=== PATIENT | female | born 1985 | race Caucasian/White ===

== ENCOUNTER 2017-02-23 05:30 | Inpatient (IN) ==
[2017-02-23] MEDS ORDERED: Naloxone 0.4 MG/ML INJ IVP PRN (11:07)
[2017-02-23] MEDS ORDERED: *HR* Nalbuphine 20 MG/ML AMPUL IVP PRN (11:07)
[2017-02-23] MEDS ORDERED: miSOPROStol 25 MCG TABLET PO PRN (11:07)
[2017-02-23] MEDS ORDERED: Metoclopramide 10 MG/2 ML VIAL IVP PRN (11:07)
[2017-02-23] MEDS ORDERED: Famotidine 20 MG/2 ML VIAL IVP PRN (11:07)
[2017-02-23] MEDS ORDERED: Ondansetron 4 MG/2 ML VIAL IVP PRN (11:07)
[2017-02-23] MEDS ORDERED: Penicillin G Potassium 5,000,000 UNIT in D5% in Water (Mini-Bag+) 100 ML IVPB ONE (11:10)
[2017-02-23 11:27] LABS: Basophils % 0.2 %; Eosinophils # 0.1 K/mcL (0.0-0.6); Eosinophils % 0.8 %; Hematocrit 40.3 % (35.3-44.9); Hemoglobin 13.3 g/dL (11.5-15.4); Immature Granulocytes % 0.6 % (0-4); Lymphocytes # 2.1 K/mcL (0.6-4.6); Mean Corpuscular Hemoglobin 28.7 pg (28.0-33.3); Mean Platelet Volume 9.7 fL (9.4-12.4); Monocytes # 0.7 K/mcL (0.0-1.3); Monocytes % 7.5 %; Neutrophils # 6.7 K/mcL (1.6-8.9); Platelet Count 287 K/mcL (140-400); Red Blood Count 4.63 M/mcL (3.82-4.97); Red Cell Distribution Width 13.2 % (11.5-14.5); Segmented Neutrophils % 68.9 %
[2017-02-23] MEDS: Ringers Solution, Lactated 1,000 ML IVC SCH ×2 (11:34→20:30)
[2017-02-23 11:48] LABS: Amphetamine Screen,Urine Negative ng/mL (Cutoff=1000); Barbiturate Screen,Urine Negative ng/mL (Cutoff=200); Benzodiazepines Screen,Urine Negative ng/mL (Cutoff=200); Cannabinoid Screen,Urine Negative ng/mL (Cutoff = 50); Cocaine Screen,Urine Negative ng/mL (Cutoff= 300); Opiate Screen,Urine Negative ng/mL (Cutoff=300); Phencyclidine Screen,Urine Negative ng/mL (Cutoff=25)
--- NOTE | 2017-02-23 11:59 | OB/GYN History & Physical ---
Date of Encounter: 02/23/17 Time of Encounter: 12:03 Assessment and Plan (1) Post term at 41 weeks gestation Current visit: Yes Status: Acute Patient with spontaneous contractions every 5 minutes on arrival. No cervical change from her exam 3 days ago. Induction of labor with Chen balloon and by mouth Cytotec planned. Anticipate vaginal delivery (2) GBS (group B Streptococcus carrier), +RV culture, currently Current visit: Yes Status: Acute Penicillin prophylaxis per protocol History of Present Illness Chief complaint: 40 weeks IOL HPI: Ms. Machuca is a 31 year old female at 41 weeks with an EDC of 02/16/17 by LMP confirmed by ultrasound at 8 weeks. She presents to labor and delivery for induction of labor. She has had symptoms of cramping for over a week but denies any vaginal bleeding or loss of fluid. She had a reactive NST and KECIA of 20.2 at her office visit on 02/20/17. She reports an active fetus today and again reports no loss of fluid or vaginal bleeding prior to arrival. Her induction was delayed by 5 hours due to staffing on labor and delivery. Her has been complicated by polyhydramnios near-term which resolved, positive group B strep culture, anemia and postdates. The patient has been on iron supplementation and vitamins. Her blood type is O+, rubella immune varicella immune. Past Med Surg Social Fam HX - Past Medical History Attestation: Yes The following information was validated with the patient. Source: patient, old records reviewed Medical history: no medical history Psychiatric history: no psych history - Past Surgical History Surgical History: cholecystectomy - Social History Smoking Status: Never smoker Smokeless Tobacco Status: No Alcohol use: none Drug use: none Current living situation: Home - Independent Activity Level: Independent ambulation - Family History Father Living Status: Still Living Obstetrical History - Pregnancies : 1 Medications and Allergies Vit/Iron Fumarate/FA [ Tablet] 1 each PO DAILY 02/23/17 [ History] 3 Allergy/AdvReac Type Severity Reaction Status Date / Time No Known Allergies Allergy Verified 02/23/17 11:59 Review of System OB - Constitutional Constitutional ROS IM: weight gain - Gastrointestinal Gastrointestinal: cramping Exam - Vital Signs Vital signs: Afebrile, vital signs stable - Constitutional Constitutional: well developed, well nourished, no acute distress, average body habitus - HEENT HEENT: Normocephaly, Mucus Membranes Moist - Neck Neck exam: normal inspection, supple - Lungs Respiratory exam: CTAB - Cardiovascular Cardiovascular exam: RRR - Breasts Breast: bilateral: normal (Gravid) - Abdomen Abdomen: Present: gravid, non tender - Extremities Extremities exam: normal inspection, warm Deep Tendon Reflex Grade: 2+ Normal - Vulva Vulva: bilateral: normal - Vagina Vagina: Present: normal moisture - Cervix Dilation: 4 Effacement: 80 Station: 0 - Anus/Rectum Anus/Rectum: Present: normal perianal skin - Comments Comments: Chen balloon placed and filled with 60 mL. Patient tolerated well Results Result Diagrams: 02/23/17 11:20 All other labs normal. - VTE Reasons for not Prescribing Prophylaxis: Treatment not Indicated - Low risk for VTE
[2017-02-23] MEDS ORDERED: miSOPROStol 25 MCG TABLET PO ONE (12:00)
[2017-02-23] MEDS ORDERED: *HR* Ropivacaine/PF 0.2% 10 ML AMPUL EP ONE (14:07)
[2017-02-23] MEDS ORDERED: Ringers Solution, Lactated 500 ML IVC ONE (14:07)
[2017-02-23] MEDS ORDERED: EPHEDrine 50 MG/ML VIAL IVP PRN (14:07)
--- NOTE | 2017-02-23 14:10 | Anesthesia Evaluation PreOp ---
Date of Encounter: 02/23/17 Time of Encounter: 14:00 - Past History Planned Operation: ANDRES Cardiac History: Denies any Significant Hx Pulmonary History: Denies Any Significant HX CARE ASSISTANT History: Denies Any Significant HX Other Medical History: Denies Any Significant HX Anesthesia History: No Prior Anesthetic Complications, Past Anesthesia : Yes Alcohol Use: none Drug use: none Medications and Allergies Vit/Iron Fumarate/FA [ Tablet] 1 each PO DAILY 02/23/17 [ History] 3 Allergy/AdvReac Type Severity Reaction Status Date / Time No Known Allergies Allergy Verified 02/23/17 11:59 - Meds/Allergy Pre-op Review Medications Reviewed: Yes Allergies Reviewed: Yes Beta Blockers on Current Med List: No Anesthesia Results - Labs 02/23/17 11:20 Anesthesia Exam Height: 1.68m Weight: 67.5kg NPO (# of Hours): >4hr Pain Scale Used: Numeric (1 - 10) - HEENT Pupil (Motor): Pupils equal Mallampati: I Teeth: Normal Oral Opening: Greater than 3 - CARE ASSISTANT LOC: Oriented CARE ASSISTANT Motor: Normal RUE, Normal LUE, Normal RLE, Normal LLE, Normal Face CARE ASSISTANT Sensory: Normal: RUE, LUE, RLE, LLE, Face - Cardiac Rhythm: Regular Murmur: None JVD: No Carotid Bruit: No - Pulmonary Breath Sounds: bilateral Clear Respiratory Effort: Symmetrical Anesthesia Assess/Plan ASA Score: 2 Modified Tuan Scale for Level of Consciousness: Cooperative, oriented, and tranquil Anesthetic Plan: Regional Autologous Blood: Yes Monitoring Plan: Standard Monitors Recovery Plan: Other
[2017-02-23] MEDS ORDERED: Epidural Premix (fent/bupiv) 110 ML EP SCH (14:15)
[2017-02-23] MEDS: Penicillin G Potassium 2,500,000 UNIT in D5% in Water 100 ML IVPB SCH ×2 (15:51→19:50)
--- NOTE | 2017-02-23 17:11 | OB Labor Progress Note ---
Date of Encounter: 02/23/17 Time of Encounter: 17:08 Labor Progress Note - Subjective Subjective: The patient is comfortable with contractions. Her 60 mL Chen catheter balloon has just come out. She has had 2 doses of penicillin for her GBS-positive culture - Vital Signs Vital Signs: Afebrile, vital signs stable - Cervix Cervix: 7/80/0, vertex - Heart Tones Heart Tones: 120s baseline, CAT 1 - [place]: Contractions irregular, the patient has had 25 mcg of Cytotec as her initial dose at admission - Interventions Interventions: 41 week IUP for postdates induction with Cytotec and Chen, GBS positive with penicillin prophylaxis - Plan Plan: Amniotomy with a small amount of blood-tinged fluid seen. IUPC placed. Continue induction, patient may receive Pitocin augmentation if needed
[2017-02-23] MEDS ORDERED: Oxytocin 20 units/ LR 1000 mL 20 UNIT/1,000 ML BAG IVC SCH (18:15)
[2017-02-23] MEDS ORDERED: Epidural Premix (fent/bupiv) 110 ML EP ONE (20:59)
--- NOTE | 2017-02-23 21:18 | Anesthesia Procedures ---
Date of Encounter: 02/23/17 Time of Encounter: 21:02 Procedures: Anesthesia - Epidural/Spinal Patient ID/Chart reviewed: Yes Patient examined: Yes OB Eval: Gestational age: 41 OB Eval: : 1 OB Eval: Hx Para: 0 OB Eval: Contractions: Non-stressed pattern Consent Obtained: Yes Supplemental Oxygen: None/Room Air Site Prep: Aseptic Technique, Sterile prep and drape, 0.5% Chlorhexidine/Alcohol Patient position: upright Local Anesthetic: Lidocaine 1% Amount of Local Anesthetic used: 2 Touhy Needle Gauge: 18 Touhy Needle Depth (cm): 5 Catheter Depth at Skin (cm): 12 Test Dose (1.5% Lido + Epi): Volume given (mls): 3 Test Dose Result: Negative Loading Dose: Other: Ropivacaine 0.5% 8mL Loading Dose Administered: Thru Catheter Infusion Med: 0.125% Bupivacaine w/ 2 mcg/ml Fentanyl Infusion Rate (mls/hr): 15 (Bolus 4mL q15min; Max 3/hr)
--- NOTE | 2017-02-23 22:08 | OB Labor Progress Note ---
Date of Encounter: 02/23/17 Time of Encounter: 22:05 Labor Progress Note - Subjective Subjective: The patient is comfortable but shaking after her epidural. - Vital Signs Vital Signs: Afebrile, vital signs stable, blood pressures 100s/60s - Cervix Cervix: 7-8/80/0 with more cervix on the left - Heart Tones Heart Tones: Baseline 140s to 150s with variable decelerations to the 70s X3. Resolved with uterine displacement of the right. Attempted P Ranjan between contractions but was removed. - Biron Biron: Contractions were 2-3 minutes, 30-50 mmHg on Pitocin. Pitocin discontinued after variable decelerations - Interventions Interventions: 41 week IUP for induction of labor, positive GBS status post penicillin prophylaxis - Plan Plan: Patient has Pitocin off. Facemask oxygen for intrauterine resuscitation. heart rate tracing stable at this time
[2017-02-24] MEDS: Penicillin G Potassium 2,500,000 UNIT in D5% in Water 100 ML IVPB SCH (00:06)
--- NOTE | 2017-02-24 03:07 | OB/GYN Procedure Note ---
Delivery - Delivery Date: 02/24/17 Provider: Sandy San Intrapartum events: meconium Delivery induction: misoprostol Delivery augmentation: rupture of membranes, pitocin Delivery monitor: external FHT, external uterine, internal uterine Anesthesia: epidural Estimated Blood Loss: 200 - (s) A Delivery Date: 02/24/17 Delivery Time: 02:34 Presentation: vertex Position: JAMAL Route of delivery: Gender: Male Viability: Viable Pounds: 8 Ounces: 3 at 1 minute: 6 at 5 mins: 9 Specimens collected: cord blood Placenta: spontaneous, uterine exploration Cord: 3 umbilical vessels - Repair Episiotomy: none Laceration Description: Perineal - 2nd Degree, Labial (Left) - Complications Delivery complications: meconium Delivery comments: The patient was complete and pushing with epidural anesthesia with a spontaneous vaginal delivery in the JAMAL position of a vigorous male weighing 8 lbs. 3 oz. with Apgars of 6 at 1 minute and 9 at 5 minutes. was placed on the maternal abdomen and the care of the nursery care team. Terminal meconium was noted at the time of delivery and the infant was bulb suctioned. The cord was clamped and cut after pulsations ceased. Cord blood obtained. The placenta was delivered spontaneous and intact. Left labial laceration was repaired with 4-0 monocryl in a running nonlocking fashion. There was a second-degree perineal laceration which was repaired with 3-0 monocryl in usual fashion. Estimated blood loss 200 mL, complications none - Disposition Mom disposition: stable in LDR [place] disposition: stable in LDR
--- NOTE | 2017-02-24 03:16 | OB/GYN Progress Note ---
Date of Encounter: 02/24/17 Time of Encounter: 03:14 - Assessment and Plan (1) Post term at 41 weeks gestation Current Visit: Yes Status: Acute Patient with spontaneous contractions every 5 minutes on arrival. No cervical change from her exam 3 days ago. Induction of labor with Chen balloon and by mouth Cytotec planned. Anticipate vaginal delivery (2) GBS (group B Streptococcus carrier), +RV culture, currently Current Visit: Yes Status: Acute Penicillin prophylaxis per protocol Subjective - Subjective Principal diagnosis: 38 wk IUP Interval history: The patient has been observed for over 4 hours because she felt lightheaded and dizzy and fell onto grass forward towards her face and abdomen. The patient reports no carney, bruising or areas that are sore that need to be further evaluated. She is requesting discharge. She reports the fetus is active. There is been no vaginal bleeding or loss of fluid Antepartum ROS: movement normal, contractions (Irregular and unchanged from previous visits), no new complaints, no loss of fluid, no vaginal bleeding Objective - Vital Signs Vital Signs: Intake and Output 02/23/17 02/23/17 02/24/17 15:59 23:59 07:59 Intake Total 1200 / 1200 Balance 1200 / 1200 Intake: IV Fluids 1200 / 1200 Lactated Ringers 1,000 ML @ 125 1000 / 1000 mls/hr IVC .Q8H CHAD Rx#: [id number] Pfizerpen 2,500,000 UNIT In 200 / 200 Dextrose 5% 100 ML @ 200 mls/hr IVPB Q4HR CHAD Rx#:[id number] Other: Weight 67.5 kg - Exam FHR: category 1 Abdomen: Present: normal appearance (No carney or bruising), soft, gravid. Absent: tenderness - Labs Labs: CBC shows hemoglobin 9.9 which is stable, electrolytes are normal
[2017-02-24] MEDS ORDERED: Acetaminophen 325 MG TABLET PO PRN (06:45)
[2017-02-24] MEDS ORDERED: *HR* HYDROcodone/Acet 5/325 mg TABLET PO PRN (06:45)
[2017-02-24] MEDS ORDERED: Oxytocin 20 units/ LR 1000 mL 20 UNIT/1,000 ML BAG IVC SCH (06:45)
[2017-02-24] MEDS ORDERED: Measles/Mumps/Rubella Vacc 0.5 ML VIAL SQ PRN (06:45)
[2017-02-24] MEDS ORDERED: Rho Immune Globulin 1,500 UNIT SYRINGE IM PRN (06:45)
[2017-02-24] MEDS: Ibuprofen 600 MG TABLET PO SCH ×3 (08:04→23:07)
[2017-02-24] MEDS ORDERED: Prenatal Vit/FA 1 EACH TABLET PO SCH (09:00)
[2017-02-24] MEDS ORDERED: Preparation H Ointment 30 GM TUBE TP PRN (22:34)
[2017-02-25 07:07] LABS: Basophils % 0.3 %; Eosinophils # 0.1 K/mcL (0.0-0.6); Eosinophils % 1.3 %; Hematocrit 31.2 % (35.3-44.9); Immature Granulocytes % 0.5 % (0-4); Lymphocytes # 2.7 K/mcL (0.6-4.6); Lymphocytes % 24.5 %; Mean Corpuscular HGB Conc 31.7 g/dL (31.6-35.5); Mean Corpuscular Hemoglobin 28.6 pg (28.0-33.3); Mean Corpuscular Volume 90.2 fL (83.0-100.0); Mean Platelet Volume 9.9 fL (9.4-12.4); Monocytes # 0.8 K/mcL (0.0-1.3); Monocytes % 6.8 %; Neutrophils # 7.4 K/mcL (1.6-8.9); Platelet Count 215 K/mcL (140-400); Red Blood Count 3.46 M/mcL (3.82-4.97); Red Cell Distribution Width 13.5 % (11.5-14.5); Segmented Neutrophils % 66.6 %
[2017-02-25 07:25] LABS: Hemoglobin 9.9 g/dL (11.5-15.4)
[2017-02-25 08:28] VITALS: BP 98/63
--- NOTE | 2017-02-25 08:39 | Discharge Summary ---
Date of Encounter: 02/25/17 Time of Encounter: 08:37 - Discharge Diagnosis (1) Post term at 41 weeks gestation Priority: Primary Status: Acute Comments: Successful induction of labor for postdates with terminal meconium. Patient meeting milestones and is requesting discharge (2) GBS (group B Streptococcus carrier), +RV culture, currently Priority: Secondary Status: Acute (3) Vaginal delivery Priority: Secondary Status: Acute (4) Perineal laceration during delivery, delivered Priority: Secondary Status: Acute Comments: Repaired (5) anemia Priority: Secondary Status: Acute Comments: Iron supplementation. Bleeding stable (6) Breast feeding status of mother Priority: Secondary Status: Acute Comments: Patient doing well. Breast-feeding at this time. She is requesting a breast pump prescription - Discharge Medications Prescriptions: Ibuprofen [Motrin] 600 mg PO Q6HR #60 tablet Ferrous Sulfate 325 mg PO DAILY #30 tablet Home Medications: Vit/Iron Fumarate/FA [ Tablet] 1 each PO DAILY 02/23/17 [ History] Breast Pump [BREAST PUMP] 1 each .ROUTE AD #1 each 02/25/17 [Rx] Ferrous Sulfate 325 mg PO DAILY #30 tablet 02/25/17 [Rx] Ibuprofen [Motrin] 600 mg PO Q6HR #60 tablet 02/25/17 [Rx] Allergies/Adverse Reactions: 3 Allergy/AdvReac Type Severity Reaction Status Date / Time No Known Allergies Allergy Verified 02/23/17 11:59 Data Procedures and tests throughout hospitalization: Laboratory Tests 02/23/17 02/23/17 02/25/17 11:20 11:20 06:39 WBC 9.7 11.1 RBC 4.63 3.46 L Hgb 13.3 9.9 L D Hct 40.3 31.2 L MCV 87.0 90.2 MCH 28.7 28.6 MCHC 33.0 31.7 RDW 13.2 13.5 Plt Count 287 215 MPV 9.7 9.9 Immature Gran % 0.6 0.5 Seg Neutrophils % 68.9 66.6 Lymphocytes % 22.0 24.5 Monocytes % 7.5 6.8 Eosinophils % 0.8 1.3 Basophils % 0.2 0.3 Neutrophils # 6.7 7.4 Lymphocytes # 2.1 2.7 Monocytes # 0.7 0.8 Eosinophils # 0.1 0.1 Basophils # 0.0 0.0 Urine Opiates Screen Negative Ur Barbiturates Screen Negative Ur Phencyclidine Scrn Negative Ur Amphetamines Screen Negative U Benzodiazepines Scrn Negative Urine Cocaine Screen Negative U Marijuana (THC) Screen Negative Labs on day of discharge: Labs from last 24 hours 02/25/17 06:39 WBC 11.1 RBC 3.46 L Hgb 9.9 L D Hct 31.2 L MCV 90.2 MCH 28.6 MCHC 31.7 RDW 13.5 Plt Count 215 MPV 9.9 Immature Gran % 0.5 Seg Neutrophils % 66.6 Lymphocytes % 24.5 Monocytes % 6.8 Eosinophils % 1.3 Basophils % 0.3 Neutrophils # 7.4 Lymphocytes # 2.7 Monocytes # 0.8 Eosinophils # 0.1 Basophils # 0.0 Date of admission: 02/23/17 10:32 Primary care physician: PCP NONE Consults: 02/24/17 06:45 Consult to Music Cataloguer [CONS] Routine Comment: Vaginal delivery, consult needed Discharging clinician: Sandy San Anticipated date of discharge: 02/25/17 - Patient Status Disposition: Home, Self-Care Condition: Good Functional capacity at discharge: independent ambulation Overall status at discharge: patient is progressing back to baseline - Discharge Instructions Instructions: Anemia (GEN) Follow Up With: NONE,PCP [Primary Care Provider] - Sandy San MD [Partnered Physician] - - Diet and Activity Activity: increase activity as tolerated, resume usual activities as tolerated Diet: regular diet Hospital Course Procedures: , secondary perineal laceration with repair, left labial laceration with repair Reason for admission: induction of labor (Postdates) Delivery: Episiotomy: none Laceration: 2nd degree, other (Labial) Other procedures: none complications: none Discharge diagnosis: IUP at term delivered [place] baby: male Hospital course: Uncomplicated, patient meeting milestones Time Attestation: Total time spent providing and/or coordinating discharge services: Time Spent: Less than 30 minutes Exam - Constitutional Vitals: Temp Pulse Resp BP Pulse Ox 97.9 F 70 20 98/63 98 02/25/17 08:25 02/25/17 08:25 02/25/17 08:25 02/25/17 08:25 02/25/17 08:25 General appearance IM: cooperative, A&O X 3, pleasant, no acute distress - Respiratory Respiratory exam: Absent: respiratory distress - Cardiovascular Cardiovascular exam IM: Absent: irregular rhythm - GI/Abdominal GI/Abdominal exam IM: normal bowel sounds, soft, no peritoneal signs Incision: normal, dry, intact - Rectal Rectal exam: deferred - Uterine Tone: Firm Uterus Position: 2 Fingers Below Umbilicus - Extremities Exam Extremities exam IM: Present: normal inspection, warm. Absent: calf tenderness , pedal edema - Neurological Exam Neurological exam: alert, no focal deficits
== END 2017-02-25 09:45 | disposition home or self-care (01) | DRG 775 ==
LOC: 1NENULAB 10:32 → 1NENUOBS 02-24 05:55
PROVIDERS: ADMIT Obstetrics & Gynecology; ATTEND Obstetrics & Gynecology

== ENCOUNTER → 2018-11-16 17:00 | Observation (INO) ==
[2018-11-16 14:51] LABS: Amphetamine Screen,Urine Negative ng/mL (Cutoff=1000); Barbiturate Screen,Urine Negative ng/mL (Cutoff=200); Benzodiazepines Screen,Urine Negative ng/mL (Cutoff=200); Cannabinoid Screen,Urine Negative ng/mL (Cutoff = 50); Cocaine Screen,Urine Negative ng/mL (Cutoff= 300); Opiate Screen,Urine Negative ng/mL (Cutoff=300); Phencyclidine Screen,Urine Negative ng/mL (Cutoff=25)
[2018-11-16 14:54] LABS: Bilirubin,Urine Negative (Negative); Blood,Urine Negative (Negative); Clarity,Urine Cloudy (Clear); Color,Urine Yellow (Yellow); Glucose,Urine (UA) Normal (Normal); Ketones,Urine Negative (Negative); Leukocyte Esterase,Urine Trace (Negative); Nitrite,Urine Negative (Negative); PH,Urine 6.5 pH Units (5.0-8.0); Protein,Urine Negative (Neg-Trace); Urobilinogen,Urine Normal (Normal)
[2018-11-16 14:59] LABS: Bacteria,Urine Few per hpf (None-Few); Hyaline Casts,Urine None Seen per lpf (None-Few); RBC,Urine 0-3 per hpf (0-3); Squamous Epithelial Cell,Urine Many per lpf (None-Few)
== END | disposition home or self-care (01) ==
LOC: 1NENULAB
PROVIDERS: ADMIT Advanced Practice Midwife; ATTEND Advanced Practice Midwife

== ENCOUNTER 2018-12-05 08:00 | Inpatient (IN) ==
[2018-12-05] MEDS ORDERED: Metoclopramide 10 MG/2 ML VIAL IVP PRN (08:10)
[2018-12-05] MEDS ORDERED: miSOPROStol 25 MCG TABLET PO PRN (08:10)
[2018-12-05] MEDS ORDERED: Famotidine 20 MG/2 ML VIAL IVP PRN (08:10)
[2018-12-05] MEDS ORDERED: Naloxone 0.4 MG/ML INJ IVP PRN (08:10)
[2018-12-05] MEDS ORDERED: *HR* Nalbuphine 10 MG/ML AMPUL IVP PRN (08:10)
[2018-12-05] MEDS ORDERED: D5% in 0.45% NACL 1,000 ML IVC SCH (08:15)
[2018-12-05 09:30] LABS: Basophils % 0.2 %; Eosinophils # 0.1 K/mcL (0.0-0.6); Eosinophils % 1.4 %; Hematocrit 37.4 % (35.3-44.9); Hemoglobin 12.4 g/dL (11.5-15.4); Immature Granulocytes % 0.4 % (0-4); Lymphocytes # 2.1 K/mcL (0.6-4.6); Lymphocytes % 21.4 %; Mean Corpuscular HGB Conc 33.2 g/dL (31.6-35.5); Mean Corpuscular Hemoglobin 28.9 pg (28.0-33.3); Mean Corpuscular Volume 87.2 fL (83.0-100.0); Mean Platelet Volume 9.7 fL (9.4-12.4); Monocytes # 0.8 K/mcL (0.0-1.3); Monocytes % 7.7 %; Neutrophils # 6.9 K/mcL (1.6-8.9); Platelet Count 284 K/mcL (140-400); Red Blood Count 4.29 M/mcL (3.82-4.97); Red Cell Distribution Width 13.3 % (11.5-14.5); Segmented Neutrophils % 68.9 %
[2018-12-05 09:57] LABS: Amphetamine Screen,Urine Negative ng/mL (Cutoff=1000); Barbiturate Screen,Urine Negative ng/mL (Cutoff=200); Benzodiazepines Screen,Urine Negative ng/mL (Cutoff=200); Cannabinoid Screen,Urine Negative ng/mL (Cutoff = 50); Cocaine Screen,Urine Negative ng/mL (Cutoff= 300); Opiate Screen,Urine Negative ng/mL (Cutoff=300); Phencyclidine Screen,Urine Negative ng/mL (Cutoff=25)
--- NOTE | 2018-12-05 12:16 | History & Physical Report ---
Date of Encounter: 12/05/18 Time of Encounter: 12:16 24 Hour HP Update - Instructions Instructions: If the History and Physical is less than 30 days old and was completed prior to A.M. admission and or procedure and has NOT been updated on calendar day of procedure please complete this update prior to performing procedure. - Update Patient reports changes in Medical Condition: No Changes in examination, assessment, or condition: No Changes in Medication: No Preop tests/diagnostics Reviewed: Yes Surgery Remains Indicated: Yes Consent for Planned Operative Procedure(s) Verified: Yes - Pre-Operative Checklist Preoperative Checklist Indicated: No Prophylactic Antibiotic Ordered: No Home Medications Include Beta Concepcion: No Beta Concepcion Taken Today (Day of Surgery): No Beta Concepcion Taken Yesterday (Day Prior to Surgery): No Is VTE Prophylaxis Indicated?: NO
--- NOTE | 2018-12-05 12:21 | OB Labor Progress Note ---
Date of Encounter: 12/05/18 Time of Encounter: 12:18 Labor Progress Note - Subjective Subjective: The patient reports experiencing contractions but is not requesting any pain medication yet - Vital Signs Vital Signs: Afebrile, vital signs stable - Cervix Cervix: 3/80/-1, vertex - Heart Tones Heart Tones: 120s baseline, CAT 1 - Nikol[place] Nikolai: Contractions are 3-5 minutes after 50 MCG's of Cytotec at 9 AM. - Interventions Interventions: 39 week IUP for induction of labor. - Plan Plan: Amniotomy with a small amount of pink tinged clear fluid. IUPC placed. Pain management as requested. Anticipate vaginal delivery.
[2018-12-05] MEDS ORDERED: *HR* FentaNYL (PF) 100 MCG/2 ML VIAL EP ONE (13:19)
[2018-12-05] MEDS ORDERED: Bupivacaine-MPF 0.25% 10 ML VIAL EP ONE (13:19)
--- NOTE | 2018-12-05 13:19 | Anesthesia Evaluation PreOp ---
Date of Encounter: 12/05/18 Time of Encounter: 13:17 - Past History Planned Operation: ANDRES Cardiac History: Denies any Significant Hx Pulmonary History: Denies Any Significant HX FLOWER SHOP LABORER/DESIGNER History: Denies Any Significant HX Other Medical History: Denies Any Significant HX Anesthesia History: No Prior Anesthetic Complications (ANDRES x 1--no complications; denies personal and family h/o GA complications), Past Anesthesia (Lx cholecystectomy) : Yes Alcohol Use: none Drug use: none Medications and Allergies Vit/Iron Fumarate/FA [ Tablet] 1 each PO DAILY 02/23/17 [History] Allergy/AdvReac Type Severity Reaction Status Date / Time No Known Allergies Allergy Verified 11/16/18 14:22 - Meds/Allergy Pre-op Review Medications Reviewed: Yes Allergies Reviewed: Yes Beta Blockers on Current Med List: No Anesthesia Results - Labs 12/05/18 08:12 Anesthesia Exam 113/73, HR 77 O2 Sat Height 1.65 m Weight 68.8 kg NPO (# of Hours): >8hrs Pain Scale: 8 Pain Scale Used: Marques-Tanner (Faces) - HEENT Pupil (Motor): Pupils equal Mallampati: I Teeth: Normal Oral Opening: Greater than 3 - FLOWER SHOP LABORER/DESIGNER LOC: Oriented FLOWER SHOP LABORER/DESIGNER Motor: Normal RUE, Normal LUE, Normal RLE, Normal LLE, Normal Face FLOWER SHOP LABORER/DESIGNER Sensory: Normal: RUE, LUE, RLE, LLE, Face - Cardiac Rhythm: Regular Murmur: None - Pulmonary Breath Sounds: bilateral Clear Respiratory Effort: Symmetrical Anesthesia Assess/Plan ASA Score: 2 Level of consciousness: Cooperative, Oriented, Tranquil Anesthetic Plan: Epidural Autologous Blood: No Monitoring Plan: Standard Monitors Recovery Plan: Other
[2018-12-05] MEDS ORDERED: *HR* FentaNYL (PF) 100 MCG/2 ML VIAL ONE (13:21)
[2018-12-05] MEDS ORDERED: Bupivacaine-MPF 0.25% 10 ML VIAL ONE (13:21)
[2018-12-05] MEDS ORDERED: Epidural Premix (fent/bupiv) 110 ML EP SCH (13:30)
[2018-12-05] MEDS ORDERED: EPHEDrine 50 MG/ML VIAL ONE (14:17)
--- NOTE | 2018-12-05 14:25 | Anesthesia Procedures ---
Date of Encounter: 12/05/18 Time of Encounter: 14:23 Procedures: Anesthesia - Epidural/Spinal Patient ID/Chart reviewed: Yes Patient examined: Yes OB Eval: Gestational age: 39 weeks 3 days OB Eval: : 2 OB Eval: Hx Para: 1 OB Eval: Contractions: Non-stressed pattern Consent Obtained: Yes Supplemental Oxygen: None/Room Air Site Prep: Aseptic Technique, Sterile prep and drape, 0.5% Chlorhexidine/Alcohol Patient position: upright Local Anesthetic: Lidocaine 1% Amount of Local Anesthetic used: 3 Touhy Needle Gauge: 18 Touhy Needle Depth (cm): 5 Catheter Depth at Skin (cm): 10 Test Dose (1.5% Lido + Epi): Volume given (mls): 5 Test Dose Result: Negative Loading Dose: 0.25% Marcaine (mls): 5 Loading Dose: Fentanyl (mcg): 100 Loading Dose Administered: Thru Catheter Infusion Med: 0.125% Bupivacaine w/ 2 mcg/ml Fentanyl Infusion Rate (mls/hr): 12 (w/ demand bolus of 5mL q30min PRN) Catheter Secured in Place: Tegaderm, Tape Interspace Used: L4-L5 Loss of Resistance (SANG): Yes Blood: No CSF: No Paresthesia: No Procedure: successful on 1st attempt; Patient tolerated procedure well; VSS Vitals + FHT's: hypotension following loading dose requiring intermittent doses of phenylephrine and ephedrine IVP; please see Stephany CERVANTES's electronic documentation for details.
[2018-12-05] MEDS ORDERED: EPINEPHrine 1 MG/ML VIAL ONE (14:34)
[2018-12-05] MEDS: Oxytocin 20 units/ LR 1000 mL 20 UNIT/1,000 ML BAG IVC SCH ×2 (16:22→23:09)
[2018-12-05] MEDS ORDERED: Ringers Solution, Lactated 1,000 ML ONE (19:37)
[2018-12-05] MEDS ORDERED: Ondansetron 4 MG/2 ML VIAL IVP PRN (19:56)
--- NOTE | 2018-12-05 22:22 | OB/GYN Procedure Note ---
Delivery - Delivery Date: 12/05/18 Provider: Sandy San Intrapartum events: none Delivery induction: misoprostol Delivery augmentation: rupture of membranes, pitocin Delivery monitor: external FHT, external uterine, internal uterine Anesthesia: epidural Quantitated Blood Loss: 50 - Infant (s) Infant A Infant Delivery Date: 12/05/18 Infant Delivery Time: 21:11 Presentation: vertex Position: JAMAL Route of delivery: Gender: Female Viability: Viable Pounds: 6 Ounces: 14 Weight Gram: 3105 kg at 1 minute: 8 at 5 mins: 9 Shoulder Dystocia: not encountered Specimens collected: cord blood Placenta: spontaneous Cord: 3 umbilical vessels, other (Folded in half along the ventral body) - Repair Episiotomy: none Laceration Description: Periurethral (Hemostatic and unrepaired), Perineal - 1st Degree (Repaired with 3-0 Monocryl in usual fashion) - Complications Delivery complications: none Delivery comments: The patient was complete and pushing with epidural anesthesia with a spontaneous vaginal delivery in the JAMAL position of a vigorous female infant weighing 6 lbs. 14 oz. with Apgars of 8 at 1 minute and 9 [address] d on the maternal abdomen and handed to the nursery care team. The cord was clamped and cut after pulsations ceased. Cord blood obtained. The placenta was delivered spontaneous and intact. Three-vessel cord confirmed. There was a left periurethral laceration which was hemostatic an unrepaired. There was a first-degree perineal laceration which was repaired with 3-0 Monocryl in usual fashion. Estimated blood loss 50 mL, complications none. Both mother and were recovering in stable condition in the LDR - Disposition Mom disposition: stable in LDR [place] disposition: stable in LDR
[2018-12-06] MEDS ORDERED: Measles/Mumps/Rubella Vacc 0.5 ML VIAL SQ PRN (00:29)
[2018-12-06] MEDS ORDERED: Oxytocin 20 units/ LR 1000 mL 20 UNIT/1,000 ML BAG IVC SCH (00:29)
[2018-12-06] MEDS ORDERED: Rho Immune Globulin 1,500 UNIT SYRINGE IM PRN (00:29)
[2018-12-06] MEDS: Ibuprofen 600 MG TABLET PO SCH ×4 (02:38→19:38)
[2018-12-06] MEDS ORDERED: Acetaminophen 325 MG TABLET PO SCH (06:00)
[2018-12-06 06:54] LABS: Basophils % 0.1 %; Eosinophils # 0.1 K/mcL (0.0-0.6); Eosinophils % 0.8 %; Hematocrit 34.6 % (35.3-44.9); Hemoglobin 11.1 g/dL (11.5-15.4); Immature Granulocytes % 0.4 % (0-4); Lymphocytes # 2.4 K/mcL (0.6-4.6); Lymphocytes % 17.2 %; Mean Corpuscular HGB Conc 32.1 g/dL (31.6-35.5); Mean Corpuscular Hemoglobin 28.5 pg (28.0-33.3); Mean Corpuscular Volume 88.9 fL (83.0-100.0); Mean Platelet Volume 9.7 fL (9.4-12.4); Monocytes % 7.1 %; Neutrophils # 10.5 K/mcL (1.6-8.9); Platelet Count 233 K/mcL (140-400); Red Blood Count 3.89 M/mcL (3.82-4.97); Red Cell Distribution Width 13.2 % (11.5-14.5); Segmented Neutrophils % 74.4 %; White Blood Count 14.2 K/mcL (4.3-11.1)
[2018-12-06] MEDS ORDERED: Prenatal Vit/FA 1 EACH TABLET PO SCH (09:00)
--- NOTE | 2018-12-06 13:07 | Discharge Summary ---
Date of Encounter: 12/06/18 Time of Encounter: 13:01 - Discharge Diagnosis (1) Vaginal delivery Priority: Primary Status: Acute Comments: Patient meeting day one milestones. Pain well-controlled with prescribed medications. Voiding without difficulty, tolerating regular diet, bleeding light. No bowel movement yet. Anticipate discharge this evening (2) First degree perineal laceration during delivery Priority: Secondary Status: Acute Comments: Motrin, dermoplast, ice packs as needed for discomfort. (3) Breast feeding status of mother Priority: Secondary Status: Acute Comments: support as needed Will provide breast pump prescription - Discharge Medications Prescriptions: New Breast Pump [BREAST PUMP] 1 each .ROUTE AD #1 each Docusate [Colace] 100 mg PO BID capsule Ibuprofen [Motrin] 600 mg PO Q6HR #60 tablet Acetaminophen [Tylenol] 650 mg PO Q6HR tablet Continued Vit/Iron Fumarate/FA [ Tablet] 1 each PO DAILY Home Medications: Vit/Iron Fumarate/FA [ Tablet] 1 each PO DAILY 02/23/17 [History] Acetaminophen [Tylenol] 650 mg PO Q6HR tablet 12/06/18 [Rx] Breast Pump [BREAST PUMP] 1 each .ROUTE AD #1 each 12/06/18 [Rx] Docusate [Colace] 100 mg PO BID capsule 12/06/18 [Rx] Ibuprofen [Motrin] 600 mg PO Q6HR #60 tablet 12/06/18 [Rx] Allergies/Adverse Reactions: Allergy/AdvReac Type Severity Reaction Status Date / Time No Known Allergies Allergy Verified 11/16/18 14:22 Data Procedures and tests throughout hospitalization: Laboratory Tests 12/05/18 12/05/18 12/06/18 08:12 08:57 06:05 WBC 10.0 14.2 H RBC 4.29 3.89 Hgb 12.4 11.1 L Hct 37.4 34.6 L MCV 87.2 88.9 MCH 28.9 28.5 MCHC 33.2 32.1 RDW 13.3 13.2 Plt Count 284 233 MPV 9.7 9.7 Immature Gran % 0.4 0.4 Seg Neutrophils % 68.9 74.4 Lymphocytes % 21.4 17.2 Monocytes % 7.7 7.1 Eosinophils % 1.4 0.8 Basophils % 0.2 0.1 Neutrophils # 6.9 10.5 H Lymphocytes # 2.1 2.4 Monocytes # 0.8 1.0 Eosinophils # 0.1 0.1 Basophils # 0.0 0.0 Urine Opiates Screen Negative Ur Buprenorphine Scrn Negative Ur Barbiturates Screen Negative Ur Phencyclidine Scrn Negative Ur Amphetamines Screen Negative U Benzodiazepines Scrn Negative Urine Cocaine Screen Negative U Marijuana (THC) Screen Negative Ur Drug Screen Interp See Below Labs on day of discharge: Labs from last 24 hours 12/06/18 06:05 WBC 14.2 H RBC 3.89 Hgb 11.1 L Hct 34.6 L MCV 88.9 MCH 28.5 MCHC 32.1 RDW 13.2 Plt Count 233 MPV 9.7 Immature Gran % 0.4 Seg Neutrophils % 74.4 Lymphocytes % 17.2 Monocytes % 7.1 Eosinophils % 0.8 Basophils % 0.1 Neutrophils # 10.5 H Lymphocytes # 2.4 Monocytes # 1.0 Eosinophils # 0.1 Basophils # 0.0 Date of admission: 12/05/18 08:08 Primary care physician: Shannan Clements CNP Consults: 12/06/18 00:29 Consult to Vice President Payment [CONS] Routine Comment: Vaginal delivery, consult needed Discharging clinician: Leila Ramirez Anticipated date of discharge: 12/06/18 - Patient Status Disposition: Home, Self-Care Condition: Good Functional capacity at discharge: independent ambulation Overall status at discharge: patient is progressing back to baseline - Discharge Instructions Follow Up With: Shannan Clements CNP [Primary Care Provider] - Sandy San MD [Partnered Physician] - - Diet and Activity Activity: resume usual activities as tolerated Diet: regular diet Hospital Course Reason for admission: induction of labor Delivery: Episiotomy: none Laceration: 1st degree Other procedures: none complications: none Discharge diagnosis: IUP at term delivered baby: female Hospital course: Delivery Date: 12/05/18 Provider: Sandy San Intrapartum events: none Delivery induction: misoprostol Delivery augmentation: rupture of membranes, pitocin Delivery monitor: external FHT, external uterine, internal uterine Anesthesia: epidural Quantitated Blood Loss: 50 - (s) Infant A Infant Delivery Date: 12/05/18 Delivery Time: 21:11 Presentation: vertex Position: JAMAL Route of delivery: Gender: Female Viability: Viable Pounds: 6 Ounces: 14 Weight Gram: 3105 kg at 1 minute: 8 at 5 mins: 9 Shoulder Dystocia: not encountered Specimens collected: cord blood Placenta: spontaneous Cord: 3 umbilical vessels, other (Folded in half along the ventral body) - Repair Episiotomy: none Laceration Description: Periurethral (Hemostatic and unrepaired), Perineal - 1st Degree (Repaired with 3-0 Monocryl in usual fashion) - Complications Delivery complications: none Delivery comments: The patient was complete and pushing with epidural anesthesia with a spontaneous vaginal delivery in the JAMAL position of a vigorous female weighing 6 lbs. 14 oz. with Apgars of 8 at 1 minute and 9 at 5 [address] was placed on the maternal abdomen and handed to the nursery care team. The cord was clamped and cut after pulsations ceased. Cord blood obtained. The placenta was delivered spontaneous and intact. Three-vessel cord confirmed. There was a left periurethral laceration which was hemostatic an unrepaired. There was a first-degree perineal laceration which was repaired with 3-0 Monocryl in usual fashion. Estimated blood loss 50 mL, complications none. Both mother and infant were recovering in stable condition in the LDR - Disposition Mom disposition: stable in LDR disposition: stable in LDR Time Attestation: Total time spent providing and/or coordinating discharge services: Time Spent: Less than 30 minutes Exam - Constitutional Vitals: Temp Pulse Resp BP Pulse Ox 97.7 F 83 16 102/68 99 12/06/18 08:00 12/06/18 08:00 12/06/18 08:00 12/06/18 08:00 12/06/18 02:15 General appearance IM: A&O X 3, pleasant, no acute distress, answers questions appropriately - Respiratory Respiratory exam: Present: CTAB - Cardiovascular Cardiovascular exam IM: Present: RRR, +S1, +S2 - GI/Abdominal GI/Abdominal exam IM: normal bowel sounds, soft - Rectal Rectal exam: deferred - External exam: normal external exam Uterine Tone: Firm Uterus Position: At Umbilicus, Midline - Extremities Exam Extremities exam IM: Present: full ROM, normal capillary refill, normal inspection - Neurological Exam Neurological exam: alert, normal gait, oriented X3
[2018-12-06 16:54] VITALS: BP 98/71
[2018-12-06] MEDS ORDERED: Benzocaine/Menthol 56 GM AEROSOL SPRAY TP PRN (19:39)
== END 2018-12-06 22:55 | disposition home or self-care (01) | DRG 807 ==
LOC: 1NENULAB 08:08 → 1NENUOBS 12-06 00:48
PROVIDERS: ADMIT Obstetrics & Gynecology; ATTEND Obstetrics & Gynecology